=== PATIENT | female | born 1955 | race Hispanic/Latino ===

== ENCOUNTER → 2017-07-24 | Outpatient (CLI) | payer OTHER | LOC: OIH 08:01 | PROVIDERS: ATTEND Internal Medicine | DX: I70.0 Atherosclerosis of aorta (principal) | CPT/HCPCS: 71046 ==

== ENCOUNTER → 2018-07-01 | Outpatient (CLI) | payer OTHER | END | disposition home or self-care (01) | LOC: OIH 09:20 | PROVIDERS: ATTEND Internal Medicine | DX: I10 Essential (primary) hypertension (principal); I70.0 Atherosclerosis of aorta | CPT/HCPCS: 71046 ==

== ENCOUNTER → 2019-07-14 | Outpatient (CLI) | payer OTHER | END | disposition home or self-care (01) | LOC: OIH 12:52 | PROVIDERS: ATTEND Internal Medicine | DX: I10 Essential (primary) hypertension (principal) | CPT/HCPCS: 71045 ==

== ENCOUNTER → 2019-12-10 | Outpatient (CLI) | payer OTHER | END | disposition home or self-care (01) | LOC: RAH 07:13 | PROVIDERS: ATTEND Internal Medicine Gastroenterology | DX: I85.11 Secondary esophageal varices with bleeding (principal); K74.60 Unspecified cirrhosis of liver | CPT/HCPCS: 76700; 93975 ==